=== PATIENT | female | born 1995 | race African-American/Black ===

== ENCOUNTER 2016-09-24 17:41 | Emergency (ER) | payer MEDICAID, OTHER ==
[~2016-09-24] VITALS: Ht 180.3 cm; Wt 64.0 kg
[2016-09-24 17:48] VITALS: BP 116/44
== END 2016-09-25 05:55 | disposition left against medical advice (07) ==
LOC: ER 09-25 05:50
DX: M79.643 Pain in unspecified hand (principal); Z53.21 Procedure and treatment not carried out due to patient leaving prior to being seen by health care provider